=== PATIENT | male | born 1970 | race Hispanic/Latino ===

== ENCOUNTER 2023-01-25 19:48 | Emergency (ER) | payer BC ==
[~2023-01-25] VITALS: Ht 177.8 cm; Wt 100.7 kg
[2023-01-25] MEDS ORDERED: ORPHENADRINE C100 MG PO (20:11)
[2023-01-25] MEDS ORDERED: NAPROSYN500 MG PO (20:11)
[2023-01-25] MEDS ORDERED: ORPHENADRINE CITRATE 30 MG/ML VIAL IM ONE (20:15)
[2023-01-25] MEDS ORDERED: KETOROLAC TROMETHAMINE 60 MG/2 ML VIAL IM ONE (20:15)
== END 2023-01-25 20:53 | disposition home or self-care (01) ==
LOC: ER 19:55
DX: M54.41 Lumbago with sciatica, right side (principal)
CPT/HCPCS: 99282; J1885; J2360